=== PATIENT | female | born 1970 | race Hispanic/Latino ===

== ENCOUNTER 2017-07-23 08:25 | Inpatient (IN) | payer BC ==
[2017-07-10 08:47] VITALS: BMI 27.2
[2017-07-23 09:06] LABS: HEMATOCRIT 37.9 % (34.0-47.0); MEAN CELL VOLUME 94.9 fl (81.0-99.0); MEAN CORPUSCULAR HEMOGLOBIN 31.6 pg (27.0-31.0); MEAN CORPUSCULAR HGB CONC 33.3 g/dL (33.0-37.0); RED CELL DISTRIBUTION WIDTH 14.9 % (11.5-14.5); WHITE BLOOD COUNT 6.8 K/uL (4.8-10.8)
[2017-07-23 09:15] LABS: BLOOD UREA NITROGEN 9 mg/dl (7-17); CALCIUM 8.9 mg/dL (8.4-10.2); CARBON DIOXIDE 24 mmol/L (22-30); CHLORIDE 105 mmol/L (98-107); GFR AFRICAN-AMERICAN > 60; GLUCOSE,RANDOM 98 mg/dL (65-105); POTASSIUM 3.6 MMOL/L (3.6-5.0); SODIUM 141 mmol/l (132-148)
[2017-07-23] MEDS ORDERED: ePHEDrine 50 mg/ml Inj ONE (10:46)
[2017-07-23] MEDS ORDERED: Propofol 10 mg/ml Inj (20 ML) ONE (10:46)
[2017-07-23] MEDS ORDERED: Midazolam 2 MG/2 ML VIAL ONE (10:46)
[2017-07-23] MEDS ORDERED: Succinylcholine 200 mg/10 ml Inj IV ONE (10:47)
[2017-07-23] MEDS ORDERED: Rocuronium 10 mg/ml (5 ml) ONE (10:47)
[2017-07-23] MEDS ORDERED: ceFAZolin IV 1 gm in Dextrose 1 GM/50 ML BAG IVPB ONE (10:52)
[2017-07-23] MEDS ORDERED: SULFANILAMIDE (AVC) VAG CREAM VG ONE (10:52)
[2017-07-23] MEDS ORDERED: Bupivacaine 0.5% Inj(30mL) ONE (10:52)
[2017-07-23] MEDS ORDERED: Lidocaine 4% MPF 5 ML IJ ONE (11:05)
[2017-07-23] MEDS ORDERED: Lactated Ringer's 1,000 ML IV ONE ×3 (11:25→13:28)
[2017-07-23] MEDS ORDERED: Bupivacaine 0.5% 50 ML IJ ONE (11:55)
[2017-07-23] MEDS ORDERED: Dexamethasone 4 mg/1 ml ONE (12:05)
[2017-07-23] MEDS ORDERED: Gentamicin 80 mg/2mL Inj. ONE (12:17)
[2017-07-23] MEDS ORDERED: Desflurane Inhalation Anesthetic Liq (240 ml) ONE (12:19)
[2017-07-23] MEDS ORDERED: Gentamicin 80 mg/2mL Inj. IVPB ONE (12:32)
[2017-07-23] MEDS ORDERED: Neostigmine Methylsulfate 3mg/3ml Syringe IV ONE (13:07)
[2017-07-23] MEDS ORDERED: Lactated Ringer's 1,000 ML IV SCH (14:00)
[2017-07-23] MEDS: HYDROmorphone 0.5 mg/0.5 ml ISec IVP PRN ×7 (14:00→15:10)
--- NOTE | 2017-07-23 15:11 | PCM.SURG1 ---
Surgeon's Initial Post Op Note - Surgeon's Notes Surgeon: Yumi Steiner MD Cellulose Insulation Helper: Preston Mejia MD Type of Anesthesia: General Endo, Local Anesthesia Administered By: Chayito Begum MD Pre-Operative Diagnosis: Uterine prolapse. Chronic pelvic pain. Urinary incontinence Mixed Operative Findings: Bulky mobile uterus, c/w adenomyosis. Extensive bladder peritoneal adhessions from prior c/s, tight bladder adhessions to anterior abdominal wall and anterior uterine wall. Bladder anatomy and ureters anatomy appeared normal as per cystoscopy Post-Operative Diagnosis: Uterine prolapse. Chronic pelvic pain. Urinary incontinence Mixed. Adenomyosis. Extensive peritoneal adhessions bladder adhessions Operation Performed: Uterosacroligament suspenssion / Colpopexy. Mid urethral sling. Diagnostic cystosocpy. (hysterectomy completed by Aniyah Mejia MD, see dictation. ) Specimen/Specimens Removed: uterus, cervix and tubes Estimated Blood Loss: EBL {In ML}: 20 Blood Products Given: N/A Drains Used: No Drains Post-Op Condition: Good Date of Surgery/Procedure: 07/23/17 Time of Surgery/Procedure: 15:14
[2017-07-23] MEDS ORDERED: Oxycodone/Acetaminophen 5/325 mg Tab PO PRN (15:16)
--- NOTE | 2017-07-23 15:49 | PCM.OP ---
Operative Report - Operative Report Date of Surgery/Procedure: 07/23/17 Time of Surgery/Procedure: 15:49 Surgeon: Yumi Steiner MD Sas Developer Analyst: Preston Mejia MD Anesthesia/Sedation: Gen with ET tube Pre-Operative Diagnosis: Uterine prolapse. Chronic pelvic pain. Urinary incontinence Mixed Post-Operative Diagnosis: Uterine prolapse. Chronic pelvic pain. Urinary incontinence Mixed. Adenomyosis. Extensive peritoneal adhessions bladder adhessions Indication for Surgery: worsening prolpse uterus, chronic pelvic pain and urinary incontinence Operative Findings: Bulky mobile uterus, c/w adenomyosis. Extensive bladder peritoneal adhessions from prior c/s, tight bladder adhessions to anterior abdominal wall and anterior uterine wall. Bladder anatomy and ureters anatomy appeared normal as per cystoscopy Procedure/Operation Description: 1. Uterosacroligament suspenssion / Colpopexy. (primary surgeon). 2. Mid urethral sling. (primary surgeon). 3. Diagnostic cystosocpy. (primary surgeon). 4. Total robotic hysterectomy bilateral salpingectomy (Sas Developer Analyst surgeon) hysterectomy completed by Aniyah Mejia MD, see dictation. Detailed operative report. This is a 47 years old female with long-standing and worsening symptoms of urinary incontinence pelvic pain and uterine prolapse for several years. The patient is reporting a vaginal bulge and pressure worsening over time. The patient reported these symptoms to be debilitating and adversely affecting her quality of life. The patient is also reporting leakage of urine upon any exertion, coughing sneezing as well as urgency incontinence. For several years these symptoms of severe leakage of urine on exertion have worsened. In addition, the patient is reporting a vaginal bulge which is growing over time, it is the source of her major concern and discomfort during sexual activity. A complete work up in the office which included an ultrasound and urodynamic study revealed a picture of mixed urinary incontinence with a strong stress urinary incontinence component. The patient had a long period of failed conservative management. I was asked to evaluate this patient for symptoms of prolapse uterus and urinary incontinence by Dr. Mejia prior to a decision to undergo a total robotic hysterectomy. Following the complete workup, a long discussion of surgical vs other conservative was completed. A decision was made to proceed with a total robotic hysterectomy, colpopexy as well as mid-urethral sling procedure using synthetic mesh material. After a detailed discussion about the pros and cons of using polypropylene midurethral sling, all benefits and risks were reviewed including but not limited to the risk of infection, mesh erosion / extrusion, chronic pain and dyspareunia. In addition, the FDA warning about mesh utilization for prolapse and incontinence surgery was reviewed in details, and specific written consent was obtained. The patient elected to proceed with a midurethral sling today fully understanding the risk associated with utilizing mesh material. Other alternatives were also offered to the patient, including a biological graft such as porcine sling as well as the patient owns fascia as sling material, she elected to proceed with a mesh sling despite associated risks. Lastly, the patient elected to undergo a colpopexy without the use of mesh. After proper consent was obtained from the patient, patient was taken to the operating room where general anesthesia was obtained without difficulty. She was placed in the dorsal lithotomy position, her legs were placed in adjustable Ran stirrups, careful attention was placed not to over-flex or over -rotate The lower extremities. Hill catheter was inserted under sterile conditions. She was prepped and draped appropriately for a robotic hysterectomy , colpopexy and mid-urethral sling procedure. Examination under anesthesia revealed a widened introitus with a second degree cystourethrocele and epical uterine prolapse. After appropriate prep, the patient was draped in the usual manner for robotic surgery and vaginal surgery. See separate dictation for the start of the surgery by Dr. Mejia for the robotic hysterectomy. I was asked to provide intraoperative consultation and complete the colposuspension using uterosacral ligament suspension as well as midurethral sling. Following the completion of the hysterectomy, I continued on to complete the colpopexy and midurethral sling. At the conclusion of the hysterectomy by dr mejia, excellent hemostasis was noted. I than went on to close the colpotomy incision following the extraction of the specimen. The uterus, cervix, and fallopian tubes were delivered transvaginal through the colpotomy incision and sent to pathology for permanent analysis. The colpotomy incision was closed with 2-0 v LOC in a continuous fashion with excellent hemostasis. The vaginal vault suspension was achieved by suspending the vaginal cuff to the base of the uterosacral ligaments bilaterally. For uterosacral ligament suspension portion of the procedure, the ureters were once again identified to avoid possible compromise or kinking while suspending the vaginal vault. A 2-0 permanent suture material (Pandora-Leon) was utilized to suspend the uterosacral ligaments from the base to the vaginal vault cuff incision including both anterior and posterior aspect of the colpotomy incision. Utilizing a 3-0 Monocryl suture, the peritoneum over the colpotomy incision and uterosacral ligaments was re- approximated in a continuous fashion. The abdomen was throughout irrigated and cleared of all clots and debris. FloSeal was applied to the incision sites. Excellent hemostasis was again noted. All robotic and laparoscopic instruments removed under direct visualization. The robotic arms were undocked, and a da LikeBright robotic system was wheeled away from the patient's bedside. Both [employer] assistant manager and camera ports were closed at the fascial layer utilizing a 2-0 Vicryl suture material in interrupted fashion. Pneumoperitoneum was reduced and all skin incisions were closed utilizing 4-0 Monocryl in a subcutaneous fashion. Dermabond was applied to all incisions. The anterior vaginal wall over the midurethral area was grasped with a pair of Allis clamps and tenting the vaginal wall from the underlying urethra. Local anesthetic solution of 0.25 % Marcaine with epinephrine diluted 1:1 was used to infiltrate the periurethral space. A total of 20 cc was utilized. Using a scalpel, a midurethral vertical incision about 1 cm was made through the vaginal epithelium and periurethral fascia. Careful lateral sharp dissection using Metzenbaum scissors towards the inferior pubic ramus to eventually allow the sling graft to lie flat against the urethra. Next, the sling mesh was loaded onto the needle tip. The needle tip was inserted through one side of the incision towards the medial edge of the obturator foramen approximately 45 degrees of the horizontal plane. Using an arching helical motion, the needle tip was advanced through pushing the obturator internus muscle. The needle was released from the graft and loaded on the other side of the sling ready for deployment to the contralateral side. Ensuring the sling is flat on the urethra and not twisted, the needle was advanced in an arching motion towards the obturator internus muscle on the opposite site. Attention was readdressed to allow a flat placement with tension - free sling on the midurethra. Following saline irrigation and good hemostasis was noted, the vaginal mucosa was closed with 2-0 Vicryl in a locking fashion. At the conclusion of this procedure, a diagnostic cystoscopy was completed. The Hill catheter was removed; the bladder was distended with approximately 350 cc of normal saline. A 30 cystoscope was introduced and a survey of the bladder anatomy was completed. The base, and the dome of the bladder appeared normal, both ureteral orifices appeared normal and were efluxing urine freely. The urethra appeared normal. A Hill catheter was reinserted. Vaginal packing was inserted to be removed the next morning. Patient emerged from general anesthesia without difficulty, and was taken to recovery room in stable condition. Prior to incision the patient received antibiotics, prior to closure sponge lap and needle counts were correct x2. Estimated Blood Loss: 20 Blood Replaced: none Sponge/Instrument Count: correct times two Drains: none Complications: none Specimen: uterus cervix tubes Discharge & Condition: discharged home in stable condition.
--- NOTE | 2017-07-23 16:41 | OP ---
PROCEDURE DATE: 07/23/2017 PREOPERATIVE DIAGNOSES: Pelvic pain, dysmenorrhea, dyspareunia and urinary incontinence and pelvic prolapse. POSTOPERATIVE DIAGNOSES: Pelvic pain, dysmenorrhea, dyspareunia and urinary incontinence and pelvic prolapse. PROCEDURES PERFORMED: A cystoscopy with bilateral ureteral catheterization and injection of IC-Green, robotic hysterectomy and bilateral salpingectomy. Additionally, to be separately dictated by Dr. Yumi Steiner is a Finney culdoplasty and a suburethral sling that he will dictate separately in a separate operative note. SURGEON: Preston Mejia MD ORTHOPHOTO TECH/DRAFTSMAN: Yumi Steiner MD TYPE OF ANESTHESIA: General endotracheal. ESTIMATED BLOOD LOSS: 10 mL. COMPLICATIONS: None. SPECIMEN: Uterus and fallopian tubes sent to pathology. INDICATION FOR PROCEDURE: This patient is a 47-year-old who presented with a long history of severe dysmenorrhea and confirmed diagnosis of adenomyosis. She also had a history of endometriosis and a prior surgery. She also was evaluated for stress urinary incontinence and found to have both urge and stress urinary incontinence. Prior to the surgery, she was counseled with regards to the risks and benefits of the procedure and she was taken to the OR and signed the consent. DESCRIPTION OF PROCEDURE: After adequate anesthesia was obtained, the patient was placed in a dorsal lithotomy position. She was adequately padded. She was prepped and draped and a timeout was taken according to hospital policy and the procedure was started. Under direct visualization, the cystoscope was inserted into the bladder. The bladder was visualized, appearing to be free of any mass or lesions. Both ureteral orifices were in the proper anatomical position. An open-ended ureteral catheter was inserted into the left ureter and advanced into the distal ureter and 0.5 mL of IC-Green was injected. Again, on the right hand side, the open-ended ureteral stent was inserted and up to the distal ureter and 0.5 mL of IC-Green was injected. Both catheters were removed. There appeared to be an area of squamous metaplasia near the trigone of the bladder as well as a small area of punctuated micro-hemorrhage that may have been suggestive of a very mild case of interstitial cystitis. At this point, after we had undergone re-gloving, attention was at the abdomen where an open laparoscopy was performed by entering the umbilicus in a sharp way. Once the peritoneum was entered and a cannula was placed, under direct visualization, 4 additional trocars were inserted in the left upper quadrant, left mid quadrant, right upper quadrant and right mid quadrant. At this point, the da Christie Xi robot was docked and the procedure was started. The uterus appeared to have significant anterior adhesions with anterior abdominal wall and the bladder was all brought up all the way to the anterior part. Attention was further on the right hand side where the right fallopian tube was grasped and progressively dissected along the mesosalpinx. The round ligament was then bipolar coagulated and the space was entered and dissected down. The utero-ovarian ligament on the right side was then bipolar coagulated and transected. Attention then was on the left hand side where again the right fallopian tube was dissected off and along the mesosalpinx with great care to avoid injuring the ovary and then the round ligament was also bipolar coagulated and cut. At this point, both ureters were identified and dissected off out of the way and a progressive dissection was performed along both sides of the uterus, bipolar coagulating all along, all the way down to the cervix. The uterine vessels were bipolar coagulated both on the right and the left hand side and the vagina was incised circumferentially utilizing the VCare. Once this was done, the uterus was freed, the uterus was taken out of the vagina. The vagina was then closed with a running suture of 2-0 V-Loc, achieving excellent hemostasis. At this point, Dr. Steiner from Urogynecology performed both lysing the extensive adhesion over the bladder and anterior abdominal wall as well as a Finney culdoplasty and a suburethral sling, which he will dictate in a separate dictation. Preston Mejia MD
[2017-07-23] MEDS: ceFAZolin IV 2 gm in Dextrose 2 GM/50 ML BAG IVPB SCH (17:50)
[2017-07-23] MEDS: Lactated Ringer's 1,000 ML IV SCH (17:51)
[2017-07-24] MEDS ORDERED: DiphenhydrAMINE 50 mg/ml Inj ONE (01:34)
[2017-07-24] MEDS: ceFAZolin IV 2 gm in Dextrose 2 GM/50 ML BAG IVPB SCH ×2 (01:47→09:04)
[2017-07-24] MEDS: Oxycodone/Acetaminophen 5/325 mg Tab PO PRN ×3 (03:34→13:14)
[2017-07-24] MEDS: Lactated Ringer's 1,000 ML IV SCH (06:21)
[2017-07-24 07:50] LABS: HEMATOCRIT 31.2 % (34.0-47.0); MEAN CORPUSCULAR HEMOGLOBIN 31.4 pg (27.0-31.0); MEAN CORPUSCULAR HGB CONC 33.4 g/dL (33.0-37.0); RED CELL DISTRIBUTION WIDTH 14.5 % (11.5-14.5); WHITE BLOOD COUNT 11.1 K/uL (4.8-10.8)
[2017-07-24 08:30] LABS: BLOOD UREA NITROGEN 6 mg/dl (7-17); CALCIUM 8.5 mg/dL (8.4-10.2); CARBON DIOXIDE 27 mmol/L (22-30); CHLORIDE 103 mmol/L (98-107); GFR AFRICAN-AMERICAN > 60; GLUCOSE,RANDOM 114 mg/dL (65-105); POTASSIUM 4.9 MMOL/L (3.6-5.0); SODIUM 138 mmol/l (132-148)
[2017-07-24] MEDS ORDERED: DiphenhydrAMINE 50 mg/ml Inj IVP SCH (09:00)
[2017-07-24 12:26] VITALS: BP 122/70; PULSE 92; RESP 20; TEMP 99.2; O2SAT 98
--- NOTE | 2017-07-24 12:27 | CARD ---
APPROVED REPORT EKG Measurement Heart [id number] CT 128P41 [id number] <Conclusion> Normal sinus rhythm Normal ECG
== END 2017-07-24 15:10 | disposition home or self-care (01) | DRG 743 ==
LOC: H.OPSURG 08:25 → H.PEDS 15:16
PROVIDERS: ADMIT Obstetrics & Gynecology; ATTEND Obstetrics & Gynecology
PROC: 8E0W0CZ Robotic Assisted Procedure of Trunk Region, Open Approach (ICD-10-PCS; 2017-07-23)
PROC: 0TJB8ZZ Inspection of Bladder, Via Natural or Artificial Opening Endoscopic (ICD-10-PCS; 2017-07-23)
PROC: 0USG4ZZ Reposition Vagina, Percutaneous Endoscopic Approach (ICD-10-PCS; 2017-07-23)
PROC: 0TSD4ZZ Reposition Urethra, Percutaneous Endoscopic Approach (ICD-10-PCS; 2017-07-23)
PROC: 0UT9FZZ Resection of Uterus, Via Natural or Artificial Opening With Percutaneous Endoscopic Assistance (ICD-10-PCS; principal; 2017-07-23 10:15)
PROC: 0UT7FZZ Resection of Bilateral Fallopian Tubes, Via Natural or Artificial Opening With Percutaneous Endoscopic Assistance (ICD-10-PCS; 2017-07-23 10:15)
DX: N81.4 Uterovaginal prolapse, unspecified (principal); K66.0 Peritoneal adhesions (postprocedural) (postinfection); N80.0 Endometriosis of uterus; N32.89 Other specified disorders of bladder; N39.46 Mixed incontinence; Z88.2 Allergy status to sulfonamides; N94.10 Unspecified dyspareunia; N94.6 Dysmenorrhea, unspecified